=== PATIENT | male | born 1945 | race Caucasian/White ===

== ENCOUNTER → 2016-03-29 | Outpatient (CLI) | payer BC ==
[~2016-03-29] MED LIST: CHOL100010 PO; FLUO20CA35 PO; GADAVIST IV PRN
--- NOTE | 2016-03-29 11:07 | DIAGNOSTIC IMAGING REPORT ---
MRI OF THE BRAIN WITHOUT AND WITH IV CONTRAST CLINICAL HISTORY: Dizziness, left eye twitching, elevated alkaline phosphatase level. COMPARISON STUDY: No previous studies for comparison. TECHNIQUE: MRI of the brain was performed from the vertex to the skull base utilizing various T1 and T2 weighted sequences. Following the IV administration of 10 mL of Gadavist contrast, additional enhanced images were obtained. FINDINGS: Sagittal T1, axial diffusion, proton density and T2 weighted axial, coronal FLAIR, and pre and post axial T1-weighted images were acquired. These were supplemented with post gadolinium coronal T1 weighted images. No intra or extra-axial mass lesions are visualized. Axial diffusion-weighted images reveal no evidence of acute or subacute infarction. There is no evidence of ventricular dilatation. There is a prominent cisterna magna. Proton density T2-weighted and FLAIR images reveal a subcentimeter focus of increased T2 signal within the posterior aspect of the right lentiform nucleus. This could relate to a prior infarct or be a small focus of demyelination. There are no abnormal flow voids. There is a 7 mm focus of blush-like enhancement adjacent to the right sylvian fissure. 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 A 6 month follow-up study is recommended. IMPRESSION: 1. 7 mm focus of blush-like enhancement within the insular cortex adjacent to the right sylvian fissure. 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 A 6 month follow-up study is recommended 2. Small focus of increased T2 signal within the right lentiform nucleus, likely secondary to a prior infarct or small focus of nonspecific demyelination Electronically signed by: Darrin Alford M.D. 03/29/2016 11:05 AM Dictated Date/Time: 03/29/2016 10:58 AM
== END | disposition home or self-care (01) ==
LOC: C.MRIBC 10:01
PROVIDERS: ATTEND Internal Medicine
DX: R74.8 Abnormal levels of other serum enzymes (principal)

== ENCOUNTER → 2016-06-14 | Outpatient (CLI) | payer BC ==
[2015-06-18 13:34] VITALS: BP 98/62; PULSE 70
[~2016-06-14] MED LIST changes: -GADAVIST IV PRN
[2016-06-14 14:10] VITALS: BP 114/74; PULSE 69; TEMP 37; O2SAT 95
--- NOTE | 2016-06-14 16:15 | Radiation Oncology Follow-Up ---
Radiation Oncology Follow-Up Date of Visit Jun 14, 2016. Reason For Visit Annual follow-up Radiation Completion Date Salvage Radiation 11/12/14 Diagnosis (1) Prostate cancer Status: Resolved Onset Date: 02/01/2010 Location: both lobes of the prostate Histology Subtype: adenocarcinoma Stage: lll Permanent Comment: Family history of prostate cancer Participation in protocol study following PSAs Rising PSA with benign biopsy 04/21/2004 Benign biopsy 10/18/2004 biopsy on 02/01/2010 revealing adenocarcinoma Jbphh 3 +3 Status post robotic-assisted radical prostatectomy, laparoscopic pelvic lymph node dissection, and laparoscopic lysis of adhesions 06/25/2010 Pathologic stage [id number], extracapsular extension, positive margin Post prostatectomy rising PSA to 0.238 Status post completion of salvage radiation therapy 11/12/2014 received 7040 cGy Last Edited By: Verona Mcelroy on Nov 18, 2014 09:10 History of Present Illness Mr. Licea is a 69-year-old male who has a family history of prostate cancer. The patient's father was diagnosed at age 76 with prostate cancer. He was ultimately treated with a radical prostatectomy followed at sometime later by radiation in [facility] and ultimately by an orchiectomy. The patient at age 89 unrelated to his prostate cancer. For this reason the patient has been followed closely with prostate-specific antigens. On 03/16/2004 his prostate-specific antigen was mildly elevated at 4.12. However because of the family history the patient underwent ultrasound-guided biopsies on 04/26/2004. Biopsies from the left and right base left and right apex and right mid and left apex were benign. Biopsy from the left mid gland revealed a small focus of atypical glands that were suspicious for adenocarcinoma. Specimen # [id number]. Patient underwent a repeat biopsy on 10/18/2004. Biopsies from the left and right base, left and right mid gland, left and right apex and the left and right anterior gland were all benign. Specimen #[id number]. The next recorded prostatespecific antigen that is available to me was from 11/05/2009. This showed a significant increase to 10.39. This value was repeated on 12/22/2009 and remained elevated at 11.36. Because of this change in prostate-specific antigen repeat biopsies were performed on 02/01/2010. A total of 20 biopsies were taken. 3 biopsies from the left base, left mid, right mid, left apex, right apex and a single biopsy from the left anterior gland were benign. One of 3 biopsies from the right base were positive showing a small focus of adenocarcinoma with a Reyna grade of 3+3 measuring less than 0.1 cm without evidence of perineural invasion. Case: [id number]. After discussion of treatment options the patient opted to proceed with a radical prostatectomy. Since at that time no one in [place] was performing robotic surgery the patient went to see doctor Romero Latham. 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 This consisted of a robotic radical prostatectomy and lymph node sampling. The prostate gland revealed prostatic adenocarcinoma Jbphh grade 4+ 4. The tumor involved both the right and left lobe of the prostate gland and invaded into and focally through the capsule. There was unilateral extracapsular extension present on the right. The tumor occupied approximately 25-50% of the entire specimen submitted. Tumor was focally present at the inked apical margin. The inked capsular and bladder neck resection margins were free of tumor. The bilateral seminal vesicles revealed no tumor seen. 2 right pelvic lymph nodes were benign. The final AJCC staging was a p T3a pN0 . [id number]. The patient continued to be followed with postoperative prostate-specific antigens. On 10/19/2010 his prostate-specific antigen was undetectable less than 0.13. 02/21/2011 prostate-specific antigen was undetectable at less than 0.13. On 09/2011 prostate-specific antigen was undetectable at less than 0.13. On 2012 the prostate-specific antigen was 0.15. A bone scan performed on 09/27/2012 showed activity in both knees compatible with arthritic change. A small focus of activity was noted at the cervical thoracic junction on the right likely arthritic or posttraumatic. There was also evidence of an elevated alkaline phosphatase. Repeat prostate-specific antigen on 2013 showed a persistent slight increased to 0.19. On 05/26/2014 again a increase in prostate-specific antigen to 0.238. At this point the patient had a clear detectable post prostatectomy prostate-specific antigen consistent with recurrence. The patient was seen by Dr. Latham on 08/29/2014. Given the change in prostate- specific antigen his recommendation was for salvage radiation. The patient wished to receive this treatment at home. For this reason we were asked to see the patient to discuss the role of salvage radiation. He completed his course of salvage radiation therapy. This was completed 2014 he received 7040 cGy. Interim History He has been doing well over this past year. He gave an AUA score of 2. Completed expanded prostate cancer index composite for clinical practice and gave a score of 2 of 12 and urinary incontinence symptoms. He gave a score of 0 12 and urinary irritation symptoms. He gave a score of 0 12 bowel symptoms. He gave a score of 5 of 12 sexual symptoms. He gave a score of 0 12 and hormonal vitality symptoms. His total of 7 of 60. He has had recheck PSAs. He gets those at Dr. Valadez's office. He had a PSA 03/10/2016 that was less than 0.1. He is doing well in general other that he has developed tic of the left eye. He saw Dr. Valadez and had a CT of the head. He is going to be referred for Botox injection. He is also going to continue follow-up with Dr. Latham at [facility]. Allergies Coded Allergies: No Known Allergies (Unverified , 09/02/14) Home Medications Scheduled Cholecalciferol (Vitamin D), 1,000 INTER.UNIT PO DAILY Fluoxetine (Prozac), 20 MG PO DAILY Review of Systems Gastrointestinal: Symptoms: WNL GI Comments: Diet related constipation Oral: Symptoms: No Problems Respiratory: Symptoms: WNL Urinary: Symptoms: Nocturia Comments: Nocturia x 1 occasionally with increased fluid intake, see AUA & EPIC Skin: Symptoms: No Problems Physical Exam Vital Signs Date Time Temp Pulse Resp B/P Pulse Ox O2 Delivery O2 Flow Rate FiO2 06/14/16 14:10 37.0 69 16 114/74 95 Pain: Side: Right Pain Location: Knee Patient Pain Scale: 0 - 10 Initial Pain Intensity: 0.0 Pain Description: Soreness General Appearance: no apparent distress Eyes: normal inspection, EOMI ENT: normal ENT inspection, hearing grossly normal Neck: no adenopathy, thyroid normal Respiratory/Chest: lungs clear, no respiratory distress, no accessory muscle use Cardiovascular: regular rate, rhythm, no gallop, no murmur Abdomen: non tender, soft, no organomegaly Anal / Rectum: Normal sphincter tone. Prostate bed is flat. Postsurgical changes are noted. No rectal masses no rectal bleeding. Extremities: no pedal edema Neurologic/Psychiatric: no motor/sensory deficits, alert, normal mood/affect Skin: warm/dry Lymphatic: no adenopathy Laboratory Studies PSA 03/10/2016 was less than 0.1. Assessment & Plan Plan: Continue PSAs every [address] Latham in November. Today reviewed his CT of the head. He previously had this performed due to the twitching of his left eyelid. There were acronym is used in the description of the findings. He had seen his on the portal and wish to have been explained. 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 The CAT scan recommended this be repeated in 6 months. He was concerned because the scan did cost him $700 out of pocket. He will be retiring in August. He is planning to have the scan repeated after having a better understanding. He'll also then be under different insurance coverage. There is hope that the study will be less expensive. We discussed anxiety could help potentiate the tic including fatigue and caffeine. He does not use caffeine. She does have irregular hours of sleeping this may contribute to some of his problem. We asked him to return to our office in 1 year. He'll call if he has a questions or concerns in the interim. Total Time In Follow-Up I spent 30 minutes speaking to the patient and performing examination. I spent 15 minutes reviewing information in completing this note. Copy To Gonzalo Valadez M.D.; Romero Latham M.D.
== END | disposition home or self-care (01) ==
LOC: C.ONC 14:01
PROVIDERS: ATTEND Physician Assistant Medical
DX: Z08 Encounter for follow-up examination after completed treatment for malignant neoplasm (principal); Z92.3 Personal history of irradiation; Z85.46 Personal history of malignant neoplasm of prostate

== ENCOUNTER → 2017-06-21 | Outpatient (CLI) | payer BC ==
[~2017-06-21] MED LIST changes: +ATOR10TA82 PO
[2017-06-21 13:09] VITALS: BP 107/73; PULSE 59; TEMP 36.9; O2SAT 98
--- NOTE | 2017-06-21 16:16 | Radiation Oncology Follow-Up ---
Radiation Oncology Follow-Up Date of Visit Jun 21, 2017. Reason For Visit Annual follow-up Radiation Completion Date Salvage Radiation - 11/12/14 Diagnosis (1) Prostate cancer Status: Resolved Onset Date: 02/01/2010 Location: Both lobes of the prostate Histology Subtype: Adenocarcinoma Stage: lll Permanent Comment: Family history of prostate cancer Participation in protocol study following PSAs Rising PSA with benign biopsy 04/21/2004 Benign biopsy 10/18/2004 biopsy on 02/01/2010 revealing adenocarcinoma Reyna 3 +3 Status post robotic-assisted radical prostatectomy, laparoscopic pelvic lymph node dissection, and laparoscopic lysis of adhesions 06/25/2010 Pathologic stage [id number], extracapsular extension, positive margin Post prostatectomy rising PSA to 0.238 Status post completion of salvage radiation therapy 11/12/2014 received 7040 cGy Last Edited By: Verona Mcelroy on Nov 18, 2014 09:10 History of Present Illness Mr. Licea has a family history of prostate cancer. The patient's father was diagnosed at age 76 with prostate cancer. He was ultimately treated with a radical prostatectomy followed at sometime later by radiation in [facility] and ultimately by an orchiectomy. The patient at age 89 unrelated to his prostate cancer. For this reason the patient has been followed closely with prostate-specific antigens. On 03/16/2004 his prostate-specific antigen was mildly elevated at 4.12. However because of the family history the patient underwent ultrasound-guided biopsies on 04/26/2004. Biopsies from the left and right base left and right apex and right mid and left apex were benign. Biopsy from the left mid gland revealed a small focus of atypical glands that were suspicious for adenocarcinoma. Specimen # [id number]. Patient underwent a repeat biopsy on 10/18/2004. Biopsies from the left and right base, left and right mid gland, left and right apex and the left and right anterior gland were all benign. Specimen #[id number]. The next recorded prostatespecific antigen that is available to me was from 11/05/2009. This showed a significant increase to 10.39. This value was repeated on 12/22/2009 and remained elevated at 11.36. Because of this change in prostate-specific antigen repeat biopsies were performed on 02/01/2010. A total of 20 biopsies were taken. 3 biopsies from the left base, left mid, right mid, left apex, right apex and a single biopsy from the left anterior gland were benign. One of 3 biopsies from the right base were positive showing a small focus of adenocarcinoma with a Reyna grade of 3+3 measuring less than 0.1 cm without evidence of perineural invasion. Case: [id number]. After discussion of treatment options the patient opted to proceed with a radical prostatectomy. Since at that time no one in [place] was performing robotic surgery the patient went to see doctor Romero Latham. 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 This consisted of a robotic radical prostatectomy and lymph node sampling. The prostate gland revealed prostatic adenocarcinoma [place] grade 4+ 4. The tumor involved both the right and left lobe of the prostate gland and invaded into and focally through the capsule. There was unilateral extracapsular extension present on the right. The tumor occupied approximately 25-50% of the entire specimen submitted. Tumor was focally present at the inked apical margin. The inked capsular and bladder neck resection margins were free of tumor. The bilateral seminal vesicles revealed no tumor seen. 2 right pelvic lymph nodes were benign. The final AJCC staging was a p T3a pN0 . [id number]. The patient continued to be followed with postoperative prostate-specific antigens. On 10/19/2010 his prostate-specific antigen was undetectable less than 0.13. 02/21/2011 prostate-specific antigen was undetectable at less than 0.13. On 09/2011 prostate-specific antigen was undetectable at less than 0.13. On 2012 the prostate-specific antigen was 0.15. A bone scan performed on 09/27/2012 showed activity in both knees compatible with arthritic change. A small focus of activity was noted at the cervical thoracic junction on the right likely arthritic or posttraumatic. There was also evidence of an elevated alkaline phosphatase. Repeat prostate-specific antigen on 2013 showed a persistent slight increased to 0.19. On 05/26/2014 again a increase in prostate-specific antigen to 0.238. At this point the patient had a clear detectable post prostatectomy prostate-specific antigen consistent with recurrence. The patient was seen by Dr. Latham on 08/29/2014. Given the change in prostate- specific antigen his recommendation was for salvage radiation. The patient wished to receive this treatment at home. For this reason we were asked to see the patient to discuss the role of salvage radiation. He completed his course of salvage radiation therapy. This was completed 2014 he received 7040 cGy. Interim History He has been doing well over this past year. He denies any change in urinary status. He gave an AUA score of 2. He completed and expanded prostate cancer index composite for clinical practice and gave a score of 2 of 12 and urinary incontinence symptoms. He gives score of 1 of 12 and urinary irritation symptoms. He gave a score of 0 of 12 and bowel symptoms. He gave a score of 6 of 12 and sexual symptoms. To note he marked this as not being a problem. He gave a score of 2 of 12 and hormonal vitality symptoms. His total was 11 of 60. He had a recent PSA June 06, 2017 and that was found to be less than 0.1. Allergies Coded Allergies: No Known Allergies (Unverified , 09/02/14) Home Medications Scheduled Atorvastatin (Lipitor), 1 TAB PO DAILY Cholecalciferol (Vitamin D), 1,000 INTER.UNIT PO DAILY Fluoxetine (Prozac), 20 MG PO DAILY Review of Systems Gastrointestinal: Symptoms: WNL Oral: Symptoms: No Problems Other Oral Symptoms: Trouble with taking big bites of a sandwich (not chewing enough) Respiratory: Symptoms: WNL Urinary: Symptoms: WNL Comments: See AUA & EPIC Skin: Symptoms: No Problems Physical Exam Vital Signs Date Time Temp Pulse Resp B/P (MAP) Pulse Ox O2 Delivery O2 Flow Rate FiO2 06/21/17 13:09 36.9 59 16 107/73 98 Fatigue: None Eyes: normal inspection, EOMI ENT: normal ENT inspection, hearing grossly normal Respiratory/Chest: lungs clear, no respiratory distress, no accessory muscle use Cardiovascular: regular rate, rhythm, no gallop, no murmur Abdomen: non tender, soft, no organomegaly Anal / Rectum: Normal sphincter tone. Prostate bed is flat. No masses of the rectum. No rectal bleeding. Extremities: no pedal edema Neurologic/Psychiatric: no motor/sensory deficits, alert, normal mood/affect Pain Management Patient Reports Pain: No Pain Management Plan He denied pain therefore requires no pain management. Laboratory Laboratory Results: were reviewed Laboratory Comments: Reviewed in the interim history. Pathology Pathology Results: were reviewed, and pertinent findings noted in HPI Imaging Imaging Studies: were reviewed, and pertinent findings noted in HPI Assessment & Plan Plan: I have asked him to have a recheck PSA in 6 months. An order was given. He will be notified as the results. He will have a PSA at his annual examination with his primary care provider. He did have some changes in his energy level. We discussed exercise and activity. He is now retired. He had previously had a very active job where he did a lot of walking. His activity has been somewhat decreased due to winter weather. He will soon be working in the yard and increasing physical activity. Total Time In Follow-Up I spent 25 minutes speaking to the patient in performing examination. I spent 15 minutes reviewing information and completing this note. Copy To Gonzalo Valadez M.D.; Romero Latham M.D.
== END | disposition home or self-care (01) ==
LOC: C.ONC 12:56
PROVIDERS: ATTEND Physician Assistant Medical
DX: Z08 Encounter for follow-up examination after completed treatment for malignant neoplasm (principal); Z92.3 Personal history of irradiation; Z85.46 Personal history of malignant neoplasm of prostate

== ENCOUNTER → 2017-08-08 | Outpatient (CLI) | payer BC ==
[~2017-08-08] MED LIST changes: +GADAVIST IV PRN
--- NOTE | 2017-08-08 08:37 | DIAGNOSTIC IMAGING REPORT ---
MR ANGIOGRAM OF THE BRAIN CLINICAL HISTORY: Hemifacial spasm. COMPARISON STUDY: MRI of the brain performed concurrently on 08/08/2017. TECHNIQUE: 3-D [id number] MR angiography of the intracranial circulation is performed. 3-D tumble views are created and assessed. IV contrast was not administered for this examination. FINDINGS: The internal carotid arteries are widely patent bilaterally, as are the anterior and middle cerebral arteries. The vertebrobasilar system and posterior cerebral arteries are widely patent. The vertebral arteries are codominant. There is no aneurysm, high-grade stenosis, or focal vessel cutoff seen throughout the intracranial circulation. The brain parenchyma is normal as visualized. IMPRESSION: Unremarkable MR angiogram of the brain. Electronically signed by: Sandip Cheema M.D. 08/08/2017 8:36 AM Dictated Date/Time: 08/08/2017 8:33 AM
--- NOTE | 2017-08-08 08:40 | DIAGNOSTIC IMAGING REPORT ---
MRI OF THE BRAIN WITHOUT AND WITH IV CONTRAST CLINICAL HISTORY: Left hemifacial spasm. COMPARISON STUDY: MRI of the brain March 29, 2016. TECHNIQUE: Utilizing a 1.5 Clara magnet and dedicated coil, multiplanar, multiecho imaging of the brain was performed pre and postcontrast administration. IV administration of 10 mL of Gadavist contrast was uneventful. FINDINGS: There are no foci of restricted diffusion. No acute intracranial hemorrhage, midline shift or mass effect is present. A prominent cisterna magna is again noted. Basilar cisterns are patent. There are no extra-axial collections. Flow-voids for the major intracranial vessels are present. A 7 mm blush of enhancement within the right insular cortex shown on axial image 13 of 23 of the T1 post contrast sequence is unchanged since exam of March 29, 2016. No intracranial mass is present. Ventricular system is normal. Calvarial signal is maintained. Orbits and sinuses are unremarkable. IMPRESSION: 1. No acute intracranial findings. No change since MRI of March 29, 2016. 2. Stable 7 mm blush of enhancement within the right insular cortex since MRI of March 29, 2016. 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 Electronically signed by: Marcus Ha M.D. 08/08/2017 8:38 AM Dictated Date/Time: 08/08/2017 8:33 AM
== END | disposition home or self-care (01) ==
LOC: C.MRI 06:59
PROVIDERS: ATTEND Psychiatry & Neurology Neurology
DX: G93.9 Disorder of brain, unspecified (principal); G51.3 Clonic hemifacial spasm

== ENCOUNTER 2023-09-26 05:18 | Observation (INO) ==
--- NOTE | 2023-08-21 10:08 | PAT Medication Instructions ---
Medication Instructions Date of Service August 21, 2023 Home Medications Medication Instructions Recorded atorvastatin 20 mg tablet 20 mg PO PM #90 tabs 02/01/23 fluoxetine 10 mg capsule 10 mg PO PM #90 caps 02/01/23 syringe with needle 3 mL 23 x 1" #15 ea 04/17/23 (BD SafetyGlide Syringe) Medication List: cholecalciferol (vitamin D3) 25 mcg (1,000 unit) capsule 25 mcg PO PM atorvastatin 20 mg tablet 20 mg PO PM fluoxetine 10 mg capsule 10 mg PO PM cyanocobalamin (vitamin B-12) 1,000 mcg/mL injection solution 1,000 mcg IM MONTHLY MEDICATION INSTRUCTIONS: Continue as directed cyanocobalamin (vitamin B-12) 1,000 mcg/mL injection solution 1,000 mcg IM MONTHLY Take evening before surgery cholecalciferol (vitamin D3) 25 mcg (1,000 unit) capsule 25 mcg PO PM atorvastatin 20 mg tablet 20 mg PO PM fluoxetine 10 mg capsule 10 mg PO PM Other Notes Remember: NOTHING TO EAT OR DRINK AFTER MIDNIGHT If you have any questions please call us at [phone] or [phone] or [phone] or [phone]
--- NOTE | 2023-09-04 13:42 | Anesthesiology Consultation ---
Date of Service September 04, 2023 Assessment & Plan (1) Encounter for pre-operative examination: Chart Review Chart Review: Acceptable Risk for Surgery and Patient NOT seen in Pre Admission Testing Hx of significant PONV - Patient is NOT an ideal OPJ candidate (currently 23 hour obs) Per PAT appt on 09/04/23, no recent illness/disease exposures, illness related symptoms, or recent illness/disease positive tests. Will leave to surgeon's discretion if preop Covid testing needed Patient seen by cardio 04/06/23= seen for follow up on valvular heart disease. History of aortic sclerosis and mild AR with dyslipidemia. Patient had been receiving Botox injections for twitching of left eye when he developed right eye drooping. Had full work up for possible stroke. Imaging was equivocal regarding an aneurysm of MCA. Patient evaluated by neurosurgery at [facility]- felt patient did not have aneurysm and needed no further workup or treatment. Patient doing well clinically. From a cardiac standpoint, I do not believe any additional testing or treatment is indicated. Will follow up on annual or PRN basis. Patient seen by neurology 03/07/23= seen for follow up on ptosis of eyelid. "At this point in time, he may continue with his current medication regimen and plan of care. It is probable his previous right eyelid ptosis was due to a side effect of botox. I will assess an up-to-date B12 level. He is to continue to follow with all current providers and their recommendations as advised. We will follow up with him in 6-8 months, and sooner if needed." Teaching & Discussion Pre-Anesthesia Teaching/Discussion Notes: Instructed NPO after midnight before surgery,except medications with 15 cc of water. Medication instructions provided according to the PAT guidelines. History Surgery Operation Date: 09/26/23 10:30 Proposed Procedures p Left Total Hip Arthroplasty - Gurmeet Briones MD Height/Weight Height: 6 ft Weight: 95.5 kg Allergies Allergy/AdvReac Type Severity Reaction Status Date / Time No Known Allergies Allergy Verified 08/21/23 08:56 Medications Home Medications Medication Instructions Recorded Confirmed Last Taken cholecalciferol (vitamin D3) 25 25 mcg PO PM 12/02/22 08/21/23 12/09/22 mcg (1,000 unit) capsule atorvastatin 20 mg tablet 20 mg PO PM #90 tabs 02/01/23 08/21/23 Unknown fluoxetine 10 mg capsule 10 mg PO PM #90 caps 02/01/23 08/21/23 Unknown syringe with needle 3 mL 23 x 1" #15 ea 04/17/23 07/11/23 Unknown (BD SafetyGlide Syringe) cyanocobalamin (vitamin B-12) 1,000 mcg IM MONTHLY 08/21/23 08/21/23 Unknown 1,000 mcg/mL injection solution Past Medical History Medical History Aortic insufficiency mild, follows with [facility] cardio, last saw 03/2023 Blepharospasm of left eye Follows with [facility] Ophthalmology - gets Botox q 3 months 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 gets botox injections [id number] Degenerative joint disease of left hip Depression History of COVID-19 (05/2023) several times, most recent 05/2023, took Paxlovid, no current issues History of prostate cancer (2010) s/p prostatectomy, XRT- no chemo History of retinal detachment Fall 2021- right eye / treated in office Hyperlipemia Lumbar spondylosis Prediabetes Per records- Hgb A1C 5.6 per 08/2023 labs Severe sleep apnea cpap compliant Exercise / Class Metabolic Activity II 4-5 Yardwork/Stairs/Walk up hill (one flight of stairs - no chest pain or SOB ) Past Family History Family History Father Prostate cancer Dependence on supplemental oxygen Mother Stroke syndrome Diabetes Hypertension Meniere's disease Denies family history of Ovarian cancer Dementia Myocardial infarction Breast cancer Lung cancer Colorectal cancer Stroke Past Surgical History Surgical History History of appendectomy History of cataract surgery (2019) B/L History of colonoscopy (01/2021) History of knee surgery right patella removal History of radical prostatectomy Prostate Cancer Hx of biopsy thyroid - benign Nausea and vomiting after administration of anesthetic agent in 1959, also had after prostatectomy in 2010 Past Anesthesia History No Hx of Anesthesia Complications (with exception to PONV after knee surgery and prostatectomy in 2010) and No Family Hx of Anesthesia Complications History of PONV History of PONV (severe ) and Hx of Motion Sickness Social History Smoking Status: Never smoker Do You Dip or Chew Tobacco: No Hx Alcohol Use: Yes Alcohol type: beer alcohol intake frequency: a few times a week Hx Substance Use: No substance use type: does not use Review of Systems Patient denies chest pain, shortness of breath, dyspnea on exertion, reflux, cough, wheezing, palpitations. No hx of seizures, stroke, [place]. No hx of blood clots or blood transfusions Physical Exam Vital Signs VITALS BP 122/69 P 56 TEMP 97.9 SP02 97% RESP 16 Constitutional no acute distress ENMT Mouth: no TMJ clicking Thyromental Distance: > or= 3.5 Finger Breadths (4.0) Mallampati Class: I Crowns and caps to side teeth and molars Neck neck extension not limited Respiratory normal respiratory effort; no respiratory distress Auscultation: lungs clear to auscultation bilaterally; no wheezes Cardiovascular Rate/Rhythm: regular rate and regular rhythm Heart Sounds: no murmur Vessels: no carotid bruit Musculoskeletal Spine: no pain with cervical ROM Extremities: extremities normal to inspection Psychiatric Orientation: alert Lab Results Anesthesia Preop Results Results Anesthesia Widget: WBC 5.72 K/ul (4.8-10.8) 09/04/23 Hgb 12.7 g/dl (14.0-18.0) L 09/04/23 Hct 37.7 % (42.0-52.0) L 09/04/23 Plt 228 K/uL (130-400) 09/04/23 Na 140 mmol/L (136-145) 09/04/23 K 4.6 mmol/L (3.5-5.1) 09/04/23 Cl 106 mmol/L (98-107) 09/04/23 CO2 30 mmol/L (21-32) 09/04/23 BUN 17 mg/dl (6-23) 09/04/23 Creat 0.82 mg/dl (0.6-1.4) 09/04/23 Glucose Level 73 mg/dl (70-99(Fasting)) 09/04/23 PT 11.4 Seconds (9.0-12.0) 09/04/23 PTT 27 Seconds (21-31) 09/04/23 INR 1.1 (0.9-1.1) 09/04/23 HA1c 5.6 % (4.5-5.6) 09/04/23 Blood Type O Positive 09/04/23 Antibody Screen NEGATIVE 09/04/23 Testing Electrocardiogram Date: 04/06/23 Findings: + SB @ (56bpm) Otherwise normal EKG per cardio Chest X-Ray Date: 09/04/23 FINDINGS: PA and lateral chest radiographs are compared to study dated 01/06/2023. The cardiomediastinal silhouette is unremarkable. The lungs and pleural spaces are clear. There is no pneumothorax. The skeletal structures are osteopenic. The bony thorax appears intact. IMPRESSION: No active disease in the chest. Echocardiogram Date: 09/28/21 EF: 60-64% LV Function: normal RWMA: + none Other Findings: + LVH (borderline/concentric ) and + diastolic dysfunction ( Grade I ) SB during examination Mild AV sclerosis is present. Mild AR Aortic root and proximal ascending aorta are mildly enlarged (4.1/4.2cm) Other Testing Brain MRI 01/27/23= No abnormal restricted diffusion is identified. Foci of T2 and FLAIR hyperintensity are noted in the paraventricular areas consistent with chronic small vessel ischemic disease. The ventricular system is normal in appearance. Previously noted pachymeningeal enhancement has resolved. No abnormal enhancement is seen. Rhys cisterna magna is incidentally noted. There is no mass effect or midline shift. There is no evidence of acute intraparenchymal hemorrhage. No extra axial fluid collections are seen. The corpus callosum, pituitary gland, and cerebellar tonsils appear grossly unremarkable. Flow voids of the major intracranial arterial vessels are identified. The imaged portions of the paranasal sinuses, mastoid air cells, and orbits are unremarkable. Head MRA 12/29/22= No aneurysm, dissection, high-grade stenosis or arterial occlusion. 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 In retrospect, no aneurysms are present on the prior CTA study. IMPRESSION: Normal MRA of the head. Head/neck CTA 12/10/22= No occlusion, hemodynamically significant stenosis, or dissection in the major cervical arteries. No occlusion or hemodynamically significant stenosis is seen in the intracranial arteries. There is a 4 mm right MCA aneurysm.
--- NOTE | 2023-09-24 17:10 | History & Physical Report ---
Date of Service September 24, 2023 Assessment & Plan (1) Degenerative joint disease of left hip: 77-year-old male with advanced bilateral hip arthritis left side worse than the right. He is also got some underlying right knee DJD with history of patellectomy me in the past. Clearly he is mostly limited by his left hip pain. Is progressed over the past year. He like to have his left hip fixed. Plan: We are going to taken the operating do left total hip placement but the risks Mente this procedure explained the patient include but not limited to DVT PE infection neurological injury vascular bleeding palm pain limb range of motion testis dislocation fracture excetra. The patient understands and desires to proceed. Informed consent was obtained. He is planned to be discharged to home using the home health program. History of Present Illness Chief Complaint: . Progressive left hip pain Primary Care Provider: Alexsandra Schmitt MD . Patient is 77-year-old gentleman who presents now for surgical treatment of his left hip. He is got a 7-year history of increasing left hip pain discomfort is gradually gotten worse particular over the past year. Describes groin pain thigh pain which is started to really affect his walking ability. He has been managing this but over the past year its gotten worse. He now would like to proceed with a left hip replacement. Allergies Allergy/AdvReac Type Severity Reaction Status Date / Time No Known Allergies Allergy Verified 09/11/23 13:51 Home Medications Medication Instructions Recorded Confirmed Type cholecalciferol (vitamin D3) 25 25 mcg PO PM 12/02/22 09/11/23 History mcg (1,000 unit) capsule atorvastatin 20 mg tablet 20 mg PO PM #90 tabs 02/01/23 09/11/23 Rx fluoxetine 10 mg capsule 10 mg PO PM #90 caps 02/01/23 09/11/23 Rx syringe with needle 3 mL 23 x 1" #15 ea 04/17/23 09/11/23 Rx (BD SafetyGlide Syringe) cyanocobalamin (vitamin B-12) 1,000 mcg IM MONTHLY 08/21/23 09/11/23 History 1,000 mcg/mL injection solution Wheeled Walker #1 ea 09/12/23 Rx acetaminophen 500 mg tablet 1,000 mg (2 x 500 mg) PO TID pain 09/24/23 Rx (Tylenol Extra Strength) 30 days #180 tabs aspirin 81 mg tablet,delayed 81 mg PO BID 45 days #90 tabs 09/24/23 Rx release (Mychal Low Dose Aspirin) ketorolac 10 mg tablet 10 mg PO Q6 pain 5 days #20 tabs 09/24/23 Rx ondansetron 4 mg disintegrating 4 mg PO Q8 PRN nausea #20 tabs 09/24/23 Rx tablet sennosides 8.6 mg tablet (Senokot) 8.6 mg PO BID prevent constipation 09/24/23 Rx 14 days #28 tabs tramadol 50 mg tablet 50 - 100 mg (1 - 2 x 50 mg) PO Q6 09/24/23 Rx PRN pain #40 tabs Past Med/Surg History Problem List Encounter for pre-operative examination B12 deficiency Blepharospasm of left eye Prediabetes History of prostate cancer Third nerve palsy of right eye Follows with neuro Had right ptosis in the past- had extensive testing- felt Anemia Lumbar spondylosis 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 Recurrent right knee instability Depression (Acute) Vitamin D deficiency (Acute) Severe sleep apnea (Chronic) cpap nightly Medical History Aortic insufficiency mild, follows with [facility] cardio, last saw 03/2023 History of COVID-19 (05/2023) several times, most recent 05/2023, took Paxlovid, no current issues Blepharospasm of left eye Follows with [facility] Ophthalmology - gets Botox q 3 months Prediabetes Per records- Hgb A1C 5.6 per 08/2023 labs Lumbar spondylosis 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 gets botox injections [id number] Degenerative joint disease of left hip Depression Hyperlipemia Severe sleep apnea cpap compliant History of prostate cancer (2010) s/p prostatectomy, XRT- no chemo History of retinal detachment Fall 2021- right eye / treated in office Surgical History Hx of biopsy thyroid - benign History of cataract surgery (2019) B/L Nausea and vomiting after administration of anesthetic agent in 1959, also had after prostatectomy in 2010 History of colonoscopy (01/2021) History of radical prostatectomy Prostate Cancer History of knee surgery right patella removal History of appendectomy Family History Father Prostate cancer Dependence on supplemental oxygen Mother Stroke syndrome Diabetes Hypertension Meniere's disease Denies family history of Ovarian cancer Dementia Myocardial infarction Breast cancer Lung cancer Colorectal cancer Stroke Social History Smoking Status: Never smoker Second Hand Exposure: No; Do You Dip or Chew Tobacco: No; Tobacco Cessation Education Requested by Patient: No Hx Alcohol Use: Yes Alcohol type: beer Hx Substance Use: No Preferred Language: Venezuelan Communication Ability: Effective Visual Impairment: No Limitations Hearing Ability: Normal Cardroom Plastic Card Grader Required: No Beliefs That Will Affect Care: None marital status: Current Living Situation: Spouse current occupational status: retired How many Children do You have: 2 Other Information That Helps Us Care for You: No Feels Safe at Home: Yes Safety Concerns: Feels Safe At This Time Childhood Exposure to Second-Hand Smoke: No Diet: regular caffeine: No Dental Care, Regularly: Yes Physical Activity Frequency: Daily Seatbelt Use: always Sunscreen Use: Yes Assistive Devices: CPAP and Glasses Assistive Devices Comment: readers Review of Systems All systems reviewed & are unremarkable except as noted in HPI & below. Physical Exam . Physical examination was a healthy pleasant 77-year-old male. Examination of left hip reveals a patient who ambulates with a slight limp. Leg lengths appear pretty equal. He does have stiffness and pain with hip motion. He can internally rotate about 5 degrees. Negative straight leg raise. He is neur ologically intact. Constitutional WD/WN, vitals as above Neck trachea midline, no thyromegaly Respiratory normal respiratory effort, lungs clear to auscultation Cardiovascular RRR, no murmur, no edema Gastrointestinal (Abdomen) normal bowel sounds, soft, nontender, no hepatosplenomegaly Results & Data Results & Data Laboratory Results . Diagnostic Findings . X-rays of the left hip reveal advanced left hip arthritis but is got complete loss of the superior joint space. This has progressed over the past 2 years. He also has significant but less severe right hip arthritis. PG Care Time/CCT Total # of Minutes Spent Total Time Spent with Patient: Total time spent is greater than 50% in coordination of care (as documented) at patient's floor/unit and/or counseling patient: Coding Level of Care Code None Diagnoses Degenerative joint disease of left hip M16.12
[2023-09-26] MEDS: CeleBREX 200 MG CAP PO SCH (05:42)
[2023-09-26] MEDS: METOCLOPRAMIDE HCL 10 MG TABLET PO SCH (05:42)
[2023-09-26] MEDS: LR 60ML/HR IV SCH (05:42)
[2023-09-26] MEDS: ACETAMINOPHEN 500 MG TAB PO SCH ×2 (05:42→12:58)
[2023-09-26] MEDS: FAMOTIDINE 20 MG TAB PO SCH (05:42)
[2023-09-26] MEDS: dexAMETHasone**PF** 10 MG/ML VIAL IV SCH (05:42)
[2023-09-26] MEDS: LR 500ML BOLUS, THEN 15ML/HR IV SCH (05:53)
[2023-09-26] MEDS ORDERED: BUPIVACAINE 0.5 % 5 MG/1 ML PF 10ML VIAL ONE (06:21)
[2023-09-26] MEDS ORDERED: PROPOFOL IV EMULSION 10 MG/ML 20 ML VIAL IV ONE (06:29)
[2023-09-26] MEDS ORDERED: MIDAZOLAM HCL 1 MG/ML 2ML VIAL ONE (06:29)
[2023-09-26] MEDS ORDERED: fentaNYL citrate PF 100 MCG/2 ML VIAL ONE (06:29)
[2023-09-26] MEDS: TRANEXAMIC ACID 1,000 MG **IV Pre-op IV SCH (06:40)
--- NOTE | 2023-09-26 06:41 | History & Physical Bridge Note ---
Date of Service September 26, 2023 History & Physical Bridge Note I have examined the patient, reviewed the History & Physical and in the interval since the performance of the History & Physical I have noted the following changes of clinical significance: no changes noted
[2023-09-26] MEDS ORDERED: HYDROmorphone INJ 1 MG/ML SYRINGE IV PRN (06:50)
[2023-09-26] MEDS ORDERED: ePHEDrine sulfate 50 MG/ML AMP IV PRN (06:50)
[2023-09-26] MEDS ORDERED: ATROPINE SULFATE 0.1 MG/ML 10ML SYR IV PRN (06:50)
[2023-09-26] MEDS ORDERED: fentaNYL citrate PF 100 MCG/2 ML VIAL IV PRN (06:50)
[2023-09-26] MEDS ORDERED: PROMETHAZINE HCL 6.25 MG in SODIUM CHLORIDE 0.9% 50 ML IV PRN (06:50)
[2023-09-26] MEDS ORDERED: NALOXONE HCL 0.4 MG/1 ML VIAL/CARP IV PRN ×2 (06:50→12:06)
[2023-09-26] MEDS ORDERED: ONDANSETRON INJ 2 MG/ML 2 ML VIAL IV PRN ×2 (06:50→12:06)
[2023-09-26] MEDS ORDERED: FLUMAZENIL 0.1 MG/1 ML 10 ML VIAL IV PRN (06:50)
[2023-09-26] MEDS: ceFAZolin 2000MG 2,000 MG/15 ML SYR IV SCH ×2 (06:57→12:59)
[2023-09-26] MEDS ORDERED: ONDANSETRON INJ 2 MG/ML 2 ML VIAL ONE (07:18)
[2023-09-26] MEDS: BUPIVACAINE/EPINEPHRINE 0.5% MPF 1:200,000 30 ML VIAL ONE (07:32)
--- NOTE | 2023-09-26 08:16 | Operative Report ---
PG Post Operative Report Pre & Post Diagnosis Operation Date: 09/26/23 07:00 Pre-Op Diagnosis: Left Hip Degenerative Joint Disease Post-Op Diagnosis: Left Hip Degenerative Joint Disease I identified the patient and participated in the time-out.: Yes Procedure Operation Date: 09/26/23 07:00 Actual Procedures p Left Total Hip Arthroplasty, Uncemented(Left) - Gurmeet Briones MD Surgeon Gurmeet Briones MD Desulfurizer Machine Nirmal Calderon PA-C Estimated Blood Loss 150 Findings Consistent with Post-Op Diagnosis Operative findings were advanced left hip DJD. He had a grade 4 [id number] disease of the femoral head and acetabulum. He had a large anterior acetabular osteophyte. Specimens Left femoral head sent for pathology. Anesthesia Type Spinal MAC Complications none Disposition Accompanied Patient To Recovery: No Indications Patient is a 77-year-old gentleman is had a several year history of increasing left hip pain discomfort is gotten significantly worse over the past year. X- rays showed advanced hip arthritis. He failed conservative measures. He elected proceed with total hip arthroplasty. Description of Procedure Operative implants consist of: 1 Biomet G7 size 54 mm acetabular shell. 2. 6.5 cancellous acetabular screws 1 at 35 mm in length and 1 of 30 mm length. 3. [place] hole fly setter. 4. Highly cross-linked polyethylene liner with a 54 mm outer diameter and a 36 mm inner diameter. 5. DePuy Corail I size 12 KLA femoral stem. 6. +5/36 mm ceramic articular ball. The patient was taken the operating, identified, placed on the operating table in the supine position. All contact areas were appropriately padded. IV antibiotics were tried by anesthesia team. A spinal anesthetic and been implemented holding area. The patient was then placed in the right lateral decubitus position. An axillary roll was placed. Distal Birkett position was used for positioning. The left hip and leg were then prepped and draped in usual sterile fashion. A posterolateral approach to the left hip was then performed through a curvilinear incision centered over the greater trochanter. Sharp dissection carried through subcutaneous tissue down to level the IT band gluteal fascia. The IT band gluteal fascia incised longitudinally in line with skin incision. The underlying greater and bursa was excised. The piriformis and external rotators along with the hip joint capsule were then released from the posterior aspect of the hip as a single layer. Great care was taken throughout the procedure protect the sciatic nerve at all times. The hip was internally rotated and dislocated. Femoral neck osteotomy cut was made with Final Cut about 10 mm above the lesser trochanter. Femoral head was removed and sent for pathology. The femur was retracted anteriorly. Attention drawn the acetabulum. The acetabular labrum was excised. The pulmonary fat was excised. Sequential reaming the acetabular was then performed again with a size 47 reamer and progressing up to 53. I reamed a little bit with a 54 reamer. I then placed a 54 mm Biomet G7 acetabular shell in about 20 degrees of anteversion and 40 degrees lateral opening. It was fixed with two 6.5 cancellous screws. A large anterior osteophyte was removed. Trial liner was placed. Attention drawn the femur. The proximal femur was entered with the [employer] cutter followed by canal finder. I then broached beginning size 8 and progressing up to 12 to get excellent fitted to 12. I did not think I could likely get the 13 down. We then trialed the hip and the +5 articular ball seem to recreate soft tissue and leg lengths equal. The hip was fully stable full extension and external rotation and flexion to 90 degrees internal Tatian about [address] I elected to place these implants. All trial implants were removed. An apex hole fly setter was placed. Highly cross-linked polyethylene liner was placed. A size 12 KLA femoral stem was impacted in position. A +5/36 mm ceramic articular ball was placed. Hip was located once again found to be stable. Attention drawn toward closing. Wounds irrigated coconuts of pulsatile lavage solution. I did inject locally with 60 cc of half percent Marcaine with epinephrine. The posterior capsule and external rotators were repaired through drill holes in the posterior trochanter with #2 Tycron suture. The IT band gluteal fascia then closed with #1 PDS suture in running fashion through subcutaneous tissues then closed with 2 layers of the deep layer #1 Vicryl suture and subcutaneous tissues with 2-0 Dexon suture in a buried interrupted fashion. Skin was closed skin nicol. Leg was then cleaned and dried and a sterile dressing with Xeroform, 4 fours, sterile ABD pad and foam tape was applied. Patient then transferred to the recovery room in stable condition. Patient tolerated the procedure well and there are no complications. Nirmal Calderon, my physician political science research assistant, was present for the entire procedure. His assistance was essential and required for appropriate patient positioning, prepping and draping, surgical exposure, performing the technical details of the operation, placement the implants, closure of the wound, and placement of the sterile bandage. I attest to the content of the Intraoperative Record and any orders documented therein. Any exceptions are noted below.
--- NOTE | 2023-09-26 09:52 | XRay Report ---
XR hip 1V LT w pelvis HISTORY: 77 years-old Male IN PACU - Post Surgical left hip arthroplasty COMPARISON: 07/10/2023 TECHNIQUE: AP view of the pelvis with crosstable lateral view of the left hip FINDINGS: Moderate right hip osteoarthritis. Left hip arthroplasty demonstrates satisfactory alignment. No acut e fracture, dislocation or opaque foreign body. Expected postoperative soft tissue swelling with deep tissue air and lateral skin nicol. IMPRESSION: Left hip arthroplasty with expected postoperative changes. ACT 112: Negative or not required by law. The above report was generated using voice recognition software. It may contain grammatical, syntax o r spelling errors. Electronically signed by: Landon Perez M.D. 09/26/2023 9:51 AM
--- NOTE | 2023-09-26 09:58 | Anesthesiology Progress Note ---
Date of Service September 26, 2023 Anesthesia Post Procedure Vital Signs Vital Signs: Temp Pulse Pulse Resp BP Pulse Ox O2 Del Method 09/26/23 09:50 56 L 12 108/61 97 Nasal Cannula 09/26/23 09:40 58 L 14 105/61 100 Room Air 09/26/23 09:30 63 16 107/64 100 Room Air 09/26/23 09:20 59 L 12 109/61 100 Room Air 09/26/23 09:10 60 20 104/54 L 94 Room Air 09/26/23 09:00 60 20 123/68 100 Room Air 09/26/23 08:50 62 18 121/68 98 Room Air 09/26/23 08:40 65 18 117/61 99 Room Air 09/26/23 08:30 67 16 110/43 L 100 Room Air 09/26/23 08:20 73 16 100/60 100 Oxymask 09/26/23 08:09 36.1 C L 70 14 105/58 L 96 Oxymask 09/26/23 05:38 36.6 C 63 20 113/77 98 Room Air O2 Flow Rate 09/26/23 09:50 2 09/26/23 09:40 09/26/23 09:30 09/26/23 09:20 09/26/23 09:10 09/26/23 09:00 09/26/23 08:50 09/26/23 08:40 09/26/23 08:30 09/26/23 08:20 3 09/26/23 08:09 6 09/26/23 05:38 Transfer of Care Handoff Completed per policy Notes Mental Status: alert / awake / arousable Patient Amnestic to Procedure: Yes Nausea / Vomiting: adequately controlled Pain: adequately controlled Airway Patency, RR, SpO2: stable & adequate BP & HR: stable & adequate Hydration State: stable & adequate Neuraxial Anesthesia: was administered and sensory block is resolving Anesthetic Complications: no major complications apparent
[2023-09-26] MEDS ORDERED: PHARMACY GLYCEMIC MGMT CONSULT PRN (12:06)
[2023-09-26] MEDS ORDERED: traMADol HCL 50 MG TABLET PO PRN (12:06)
[2023-09-26] MEDS ORDERED: HYDROmorphone INJ 0.5 MG/0.5 ML SYR IV PRN (12:06)
[2023-09-26] MEDS ORDERED: MAGNESIUM HYDROXIDE SUSP 30 ML UDC PO PRN (12:06)
[2023-09-26] MEDS ORDERED: METOCLOPRAMIDE HCL INJ 5 MG/ML 2 ML VIAL IV PRN (12:06)
[2023-09-26] MEDS ORDERED: ALUMINUM/MAGNESIUM SUSP 30 ML UDC PO PRN (12:06)
[2023-09-26] MEDS ORDERED: TAMSULOSIN HCL 0.4 MG CAP PO PRN (12:06)
[2023-09-26] MEDS ORDERED: bisacodyL 10 MG SUPP PR PRN (12:06)
[2023-09-26] MEDS: SODIUM CHLORIDE 0.9% 1,000 ML IV SCH (12:11)
[2023-09-26] MEDS: SENNA 8.6 MG TAB PO SCH ×2 (12:34→20:49)
[2023-09-26] MEDS: DOCUSATE SODIUM 100 MG CAP PO SCH (12:34)
[2023-09-26] MEDS: ASPIRIN 81 MG ECTAB PO SCH (12:34)
[2023-09-26] MEDS: MULTIVITAMIN TAB PO SCH (12:35)
[2023-09-26] MEDS: KETOROLAC TROMETHAMINE 15 MG/ML VIAL IV SCH (12:35)
[2023-09-26] MEDS ORDERED: CARBOHYDRATES FOR HYPOGLYCEMIA PO PRN (12:45)
[2023-09-26] MEDS ORDERED: DEXTROSE 50% 50 ML SYRINGE IV PRN (12:45)
[2023-09-26] MEDS ORDERED: GLUCOSE 10 TAB/TUBE PO PRN (12:45)
[2023-09-26] MEDS ORDERED: GLUCAGON FOR INJ 1 MG VIAL IM PRN (12:45)
[2023-09-26] MEDS ORDERED: GLUCOSE 40% GEL 15 GM TUBE PO PRN (12:45)
[2023-09-26] MEDS: TRANEXAMIC ACID / 0.7% NACL 1,000 MG/100 ML BAG IV SCH (13:00)
[2023-09-26] MEDS: INSULIN ASPART PER UNIT CHARGE SC SCH (13:29)
--- NOTE | 2023-09-26 14:28 | Pharmacy Report ---
Pharmacy Glycemic Short Note 2 - Date of Service September 26, 2023 - Glycemic Short BSG Results (Last 24 hours): 09/26/23 12:00 POC Glucose 148 H OUTPATIENT ANTIDIABETIC REGIMEN: * n/a * A1c = 5.6% ASSESSMENT: * Lester is a 77 yo s/p left total hip arthroplasty * He is not on anti-diabetic medications as an outpatient * He received dexamethasone 10 mg IV pre-op and is ordered a second dose for POD #1 AM. Single post-op BSG of 148 mg/dL. * Will start novolog based on weight/stress ~2. Will order a one time dose of Lantus to be given with dinner only if BSG is trending upward. PLAN FOR INPATIENT GLYCEMIC CONTROL: * Hold outpatient oral diabetes medications * Basal insulin * Lantus 0-10 units SQ x 1 with dinner (10 units for BSG > 150 mg/dL) * Bolus insulin * NovoLog per scale ACHS or Q6hrs while NPO * Goal Range: Low 110 mg/dL - High 140 mg/dL * Correction Factor: 25 mg/dL/unit * Nutritional / Prandial insulin per carb ratio of 1 unit per 9 grams CHO consumed
[2023-09-26] MEDS: ASCORBIC ACID 500 MG TAB PO SCH (16:42)
[2023-09-26] MEDS: LANTUS PER UNIT CHARGE SC ONE (16:42)
[2023-09-26 19:55] VITALS: RESP 16
[2023-09-26] MEDS: FLUoxetine HCL 10 MG CAP PO SCH (20:50)
[2023-09-26] MEDS: CHOLECALCIFEROL 25 MCG (1000 UNITS) TAB PO SCH (20:50)
[2023-09-26] MEDS: ATORVASTATIN 20 MG TAB PO SCH (20:50)
[2023-09-27] MEDS: INSULIN ASPART PER UNIT CHARGE SC SCH (02:21)
[2023-09-27 04:14] VITALS: O2SAT 100
--- NOTE | 2023-09-27 07:19 | Orthopedic Progress Note ---
Date of Service September 27, 2023 Assessment & Plan (1) Status post left hip replacement: Plan: 77-year-old gentleman postop day 1 from left total hip placement. He is doing pretty well. Pains controlled. Hips located. He is neurologically intact. Plan: 1. DVT prophylaxis including thigh-high teds, SCDs, aspirin twice a day. 2. PT/OT. Weight-bear as tolerated. Left total hip protocol. 3. Pain control doing well with current pain regimen. 4. Disposition. Plan is to discharge to home later on today if he does okay in therapy. Admission and Anticipated Discharge Date Admission Date: September 26, 2023 Subjective 77-year-old gentleman postop day 1 from a left total hip replacement. He is doing pretty well. Had a pretty good night. Pains controlled. No chest pain or shortness of breath. Not feeling dizzy or lightheaded. Physical Exam Physical Exam: Physical examination is a pleasant middle-aged male. He is lying in bed this morning looks pretty comfortable. Examination left hip and leg reveals the leg to be well aligned. Dressings clean dry and intact. Thigh is soft and supple. He can dorsiflex and plantarflex his foot. He is neurologically intact. Respiratory: normal respiratory effort, lungs clear to auscultation Cardiovascular: RRR, no murmur, no edema Gastrointestinal (Abdomen): normal bowel sounds, soft, nontender, no hepatosplenomegaly Results & Data Vital Signs (Past 12 Hours) Vital Signs Temp Pulse Resp BP BP Pulse Ox O2 Del Method 09/27/23 06:41 36.4 C L 56 L 16 124/77 100 Room Air 09/27/23 04:13 36.4 C L 55 L 16 131/72 100 Room Air 09/26/23 23:16 36.4 C L 56 L 16 112/64 99 Room Air 09/26/23 19:55 36.5 C 60 16 108/65 98 Room Air Laboratory Results Labs are all still pending this morning.
[2023-09-27 07:35] LABS: BUN Creatinine Ratio 25.9 (10-20); Calcium 8.3 mg/dl (8.6-10.3); Creatinine Clr Calc Pharmacy 86.5 ml/min; Est GFR (African American) 100.8 ml/min; Est GFR (Non-African American) 86.9 ml/min; Potassium 4.1 mmol/L (3.5-5.1)
[2023-09-27 07:40] LABS: Basophils # (auto) 0.02 K/uL (0.00-0.20); Basophils % (auto) 0.1 %; Eosinophils # (auto) 0.01 K/uL (0.00-0.50); Eosinophils % (auto) 0.1 %; Hematocrit (blood only) 33.5 % (42.0-52.0); Hemoglobin 11.3 g/dl (14.0-18.0); Immature Granulocytes # (auto) 0.08 K/uL (0.01-0.20); Immature Granulocytes % (auto) 0.6 %; Lymphocytes # (auto) 1.28 K/uL (1.20-3.40); Lymphocytes % (auto) 9.3 %; Mean Corpuscular Hgb Conc 33.7 g/dL (32.0-36.0); Mean Corpuscular Volume 88.9 fL (80.0-100.0); Mean Platelet Volume 10.9 fL (9.4-12.4); Monocytes # (auto) 1.11 K/uL (0.11-0.59); Monocytes % (auto) 8.1 %; Neutrophils % (auto) 81.8 %; Platelet Count 198 K/uL (130-400); RDW Coefficient of Variation 12.6 % (11.5-14.5); Red Blood Count 3.77 M/uL (4.70-6.10)
[2023-09-27] MEDS: dexAMETHasone 10 MG in SYRINGE 0 ML IV SCH (08:08)
[2023-09-27 08:15] VITALS: BP 126/76; PULSE 54; TEMP 98.1
[2023-10-11] MEDS ORDERED: CYANOCOBALAMIN 1000 MCG/ML VIAL IM SCH (09:00)
== END 2023-09-27 11:23 | disposition home health service (06) ==
LOC: PACUINP 05:18 → ASU 05:18 → 3E 12:00